=== PATIENT | male | born 1965 | race African-American/Black ===

== ENCOUNTER 2016-08-15 14:50 | Emergency (ER) | payer BC ==
[~2016-08-15] VITALS: Ht 167.6 cm; Wt 81.6 kg
--- NOTE | 2016-08-15 14:58 | NUR ---
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 PT REPORTS THIS HAS HAPPENED BEFORE WITH SPONTANEOUS RESOLUTION. NAD NOTED. RESP EVEN UNLABORED. AMBULATORY WITH UNSTEADY GAIT. SKIN WARM NONDIAPHORETIC. NO NEURO DEFICITS NOTED. IN ER BED 09 ON MONITOR.
[2016-08-15] MEDS ORDERED: IV SET PRIMARY 1 EA INFUS.SET MC ONE (15:14)
[2016-08-15] MEDS ORDERED: IV NS 0.9% 500 ML IV ONE (15:14)
[2016-08-15] MEDS ORDERED: LORAZEPAM INJ 2 MG/ML VIAL ONE (15:15)
[2016-08-15] MEDS ORDERED: MECLIZINE HCL 25 MG TABLET ONE (15:16)
[2016-08-15] MEDS ORDERED: IV NS 0.9% 500 ML BAG IV ONE (15:30)
[2016-08-15] MEDS ORDERED: MECLIZINE HCL 12.5 MG TABLET PO ONE (15:30)
[2016-08-15] MEDS ORDERED: LORAZEPAM INJ 2 MG/ML VIAL IV ONE (15:30)
--- NOTE | 2016-08-15 16:25 | NUR ---
Patient discharged to home in stable condition. Written and verbal after care instructions given. Patient verbalizes understanding of instruction. IV removed. Catheter intact and site benign. Pressure and 4x4 applied to site. No bleeding noted. AMBULATORY WITH STEADY GAIT. PROVIDED WITH SANDWICH.
[2016-08-15 16:41] VITALS: BP 126/77
== END 2016-08-15 16:42 | disposition home or self-care (01) ==
LOC: ER 14:52
DX: H81.10 Benign paroxysmal vertigo, unspecified ear (principal); Z90.81 Acquired absence of spleen
CPT/HCPCS: 70450-TC; J2060; J7040; J8597; Z7610